=== PATIENT | male | born 1955 | race Caucasian/White ===

== ENCOUNTER 2018-08-06 08:13 | Day surgery (SDC) | payer MEDICAID ==
[2015-09-13 22:29] VITALS: BMI 24.1
[2018-08-06] MEDS ORDERED: Propofol 10 mg/ml Inj (20 ML) ONE ×2 (10:39→10:40)
--- NOTE | 2018-08-06 10:53 | CP.SDSHP ---
Same Day Surgery H & P - History Proposed Procedure: EGD/colonoscopy Pre-Op Diagnosis: abdominal pain, screening - Previous Medical/Surgical History Cardiac: Hypertension Endocrine/Metabolic: Thyroid Disease - Allergies Allergies: Allergies No Known Allergies Allergy (Verified 08/06/18 08:39) - Physical Exam General Appearance: NAD Vital Signs: Vital Signs 08/06/18 08:20 Temperature 97.3 F L Pulse Rate 60 Respiratory 19 Rate Blood Pressure 130/78 O2 Sat by Pulse 100 Oximetry Mental Status: Alert & Oriented x3 Neuro: WNL Heart: WNL Lungs: WNL GI: WNL - {Optional Preform as Required} Abdomen: WNL - Impression Pt. Evaluated Today:Candidate for Anesthesia & Procedure: Yes - Date & Time Date: 08/06/18 Time: 10:52 Short Stay Discharge - Short Stay Discharge Admitting Diagnosis/Reason for Visit: ABDOMINAL PAIN, SCREENING Disposition: HOME/ ROUTINE
[2018-08-06 12:05] VITALS: TEMP 96.9
[2018-08-06 12:26] VITALS: O2SAT 100
[2018-08-06 13:14] VITALS: BP 110/61; PULSE 72; RESP 18
== END 2018-08-06 13:09 | disposition home or self-care (01) ==
LOC: C.ENDO 08:13
PROVIDERS: ATTEND Internal Medicine Gastroenterology
DX: R10.12 Left upper quadrant pain (principal); Z12.11 Encounter for screening for malignant neoplasm of colon; D12.3 Benign neoplasm of transverse colon; K64.8 Other hemorrhoids; K20.9 Esophagitis, unspecified; K44.9 Diaphragmatic hernia without obstruction or gangrene
CPT/HCPCS: 43239; 45380; 88305; 88312; 88342; J2001; J2704